=== PATIENT | female | born 1990 | race Asian ===

== ENCOUNTER 2020-10-08 21:06 | Emergency (ER) | payer MEDICAID, OTHER ==
[~2020-10-08] VITALS: Ht 170.2 cm; Wt 113.6 kg
[~2020-10-08 21:06] MED LIST: NOCURR
[2020-10-08] MEDS ORDERED: KETOROLAC TROMETHAMINE 30 MG/ML VIAL IM ONE (23:15)
[2020-10-09 02:30] VITALS: BP 111/72
== END 2020-10-09 02:45 | disposition home or self-care (01) ==
LOC: EMS 21:13
DX: S93.325A Dislocation of tarsometatarsal joint of left foot, initial encounter (principal); F12.90 Cannabis use, unspecified, uncomplicated; W01.0XXA Fall on same level from slipping, tripping and stumbling without subsequent striking against object, initial encounter; Y93.89 Activity, other specified; Y92.89 Other specified places as the place of occurrence of the external cause; Y99.8 Other external cause status
CPT/HCPCS: 29515; 73610; 73630; 96372; 99285; J1885